=== PATIENT | male | born 1950 | race Caucasian/White ===

== ENCOUNTER 2024-11-02 09:47 | Day surgery (SDC) | payer MEDICARE, SELFPAY ==
[2024-10-31 14:41] VITALS: BMI 26.3
--- OUTSIDE RECORDS SUMMARY | 2024-10-31 16:35 | XMS_ITS ---
Author Organization [facility] Address [address] [place] [id number] Care Team Providers Care Agriculture Laboratory Technician Name Role Phone Joseph CHRISTIAN, Autumn Primary Care Provider Fabian Alvarez Unavailable [phone] Allergies Allergen (clinical drug ingredient) Drug/Non Drug Allergy documented on EMR Reaction Allergy Type Onset Date Status Pollen (e.g. tree, grass) Unknown Allergy Active Mold Unknown Allergy Active Dust Mites Unknown Allergy Active REASON FOR VISIT colon screening Medications Medication SIG (Take, Route, Frequency, Duration) Notes Start Date End Date Status Vitamin D3 2000 UNIT Orally Active Vitamin B12 1000 MCG 1 tablet Orally Once a day Active Omeprazole 20 MG TAKE 1 CAPSULE BY [facility] EVERY DAY for 90 Active Magnesium 400 MG 1 tablet with a meal Orally Once a day Active Finasteride 5 MG 1 tablet Orally Once a day Active Gabapentin 300 MG 1 capsule Orally TWI CE A DAY Active Pravastatin Sodium 10 MG 1 tablet Orally Once a day Active Fish Oil [place]-3 Act uday Problems Problem Type SNOMED Code ICD Code Onset Dates Problem Status W/U Status Risk Notes Problem Personal history of adenomatous and serrated colon polyps (Z86.0101) Active confirmed Problem Gastroesophageal reflux disease with esophagitis (disorder) (622541822) Gastroesophageal reflux disease with esophagitis, unspecified whether hemorrhage (K21.00) Active confirmed Vital Signs Blood pressure systolic 00 mm Hg 08/02/19 25 Blood pressure diastolic 00 mm Hg 025 Height 69 in 08/02/2024 Weight 178 lbs 08/02/2024 BMI 26.28 kg/m2 08/02/2024 Encounters Encounter Location Date Provider Diagnosis [facility] [address] [place] [address] 08/02/2024 Fabian Dixon Erosive esophagitis K22.10 ; Gastroesophageal reflux disease with esophagitis K21.0 ; Hx of adenomatous colonic polyps Z86.010 and Encounter for screening for malignant neoplasm of colon Z12.11 Assessments Encounter Date Diagnosis (ICD Code) Assessment Notes Treatment Notes Treatment Clinical Notes Section Notes 08/02/2024 Erosive esophagitis (ICD-10 - K22.10) Overall, Tanner appears quite well. His reflux seems to be stable on his daily omeprazole and did advise him to continue that long-term. He was eager to undergo a followup endoscopy to assess how things are compared to his previous exam. I advised him that there was no Bruce's esophagus and a followup exam is not essential. However, given the previous history of esophagitis in 2014 and some ongoing symptoms currently he would like to have a repeat endoscopy to reassess things in that regard. As such, I will be schedule that for him. He will also have a followup colonoscopy on the same day given his history of tubular adenomas and his last exam being just about 5 years ago. We did review the rationale for that in regard to colon cancer prevention. Full consent was obtained for this, including risks of bleeding and perforation. Both procedures will be done with monitored anesthesia carel. Tanner is comfortable with this plan. He was advised to stop his fish oil and Aleve for one week before the procedure. Thank you again for allowing me to participate in Tanner's care. I shall continue to keep you advised of his progress. 08/02/2024 Gastroesophageal reflux disease with esophagitis (ICD-10 - K21.0) Overall, Tanner appears quite well. His reflux seems to be stable on his daily omeprazole and did advise him to continue that long-term. He was eager to undergo a followup endoscopy to assess how things are compared to his previous exam. I advised him that there was no Bruce's esophagus and a followup exam is not essential. However, given the previous history of esophagitis in 2014 and some ongoing symptoms currently he would like to have a repeat endoscopy to reassess things in that regard. As such, I will be schedule that for him. He will also have a followup colonoscopy on the same day given his history of tubular adenomas and his last exam being just about 5 years ago. We did review the rationale for that in regard to colon cancer prevention. Full consent was obtained for this, including risks of bleeding and perforation. Both procedures will be done with monitored anesthesia carel. Tanner is comfortable with this plan. He was advised to stop his fish oil and Aleve for one week before the procedure. Thank you again for allowing me to participate in Tanner's care. I shall continue to keep you advised of his progress. 08/02/2024 Hx of adenomatous colonic polyps (ICD-10 - Z86.010) Overall, Tanner appears quite well. His reflux seems to be stable on his daily omeprazole and did advise him to continue that long-term. He was eager to undergo a followup endoscopy to assess how things are compared to his previous exam. I advised him that there was no Bruce's esophagus and a followup exam is not essential. However, given the previous history of esophagitis in 2014 and some ongoing symptoms currently he would like to have a repeat endoscopy to reassess things in that regard. As such, I will be schedule that for him. He will also have a followup colonoscopy on the same day given his history of tubular adenomas and his last exam being just about 5 years ago. We did review the rationale for that in regard to colon cancer prevention. Full consent was obtained for this, including risks of bleeding and perforation. Both procedures will be done with monitored anesthesia carel. Tanner is comfortable with this plan. He was advised to stop his fish oil and Aleve for one week before the procedure. Thank you again for allowing me to participate in Tanner's care. I shall continue to keep you advised of his progress. 08/02/2024 Encounter for screening for malignant neoplasm of colon (ICD-10 - Z12.11) Stop the Aleve and fish oil for 1 week before the procedires Overall, Tanner appears quite well. His reflux seems to be stable on his daily omeprazole and did advise him to continue that long-term. He was eager to undergo a followup endoscopy to assess how things are compared to his previous exam. I advised him that there was no Bruce's esophagus and a followup exam is not essential. However, given the previous history of esophagitis in 2014 and some ongoing symptoms currently he would like to have a repeat endoscopy to reassess things in that regard. As such, I will be schedule that for him. He will also have a followup colonoscopy on the same day given his history of tubular adenomas and his last exam being just about 5 years ago. We did review the rationale for that in regard to colon cancer prevention. Full consent was obtained for this, including risks of bleeding and perforation. Both procedures will be done with monitored anesthesia carel. Tanner is comfortable with this plan. He was advised to stop his fish oil and Aleve for one week before the procedure. Thank you again for allowing me to participate in Tanner's care. I shall continue to keep you advised of his progress. Plan Of Treatment Treatment Notes Assessment Notes Encounter for screening for malignant neoplasm of colon Stop the Aleve and fish oil for 1 week before the procedires Future Test Test Name Order Date UPPER GI ENDOSCOPY 08/02/2024 COLONOSCOPY 08/02/2024 Next Appt Details Follow Up: prn, Reason: Provider Name:Fabian Dixon , 11/02/2024 11:30:00 AM, [address] [place] [address], [id number], Progress Notes * LILI DAWKINS JrDOB:[birth year] (73 yo M)Acc No.[id number]:08/02/2024 Progress Notes Patient:?LILI DAWKINS Provider:?Fabian Dixon MD :1950???Age:73 Y???Sex:Male Gael e:08/02/2024 Address:[address] [place] [address] Pcp:Autumn Ruiz MD Subjective: * Chief Complaints: * ???Colon screening * HPI: ???incontinence:? I saw Tanner in followup today in regard to his underlying history of gastroesophageal reflux with esophagitis, his personal history of tubular adenomas of the colon, and need for colorectal cancer screening. ?I last saw Tanner in September of 2019, at which time he underwent an upper endoscopy and colonoscopy. His colonoscopy revealed 2 tubular adenomas that were removed. His upper endoscopy revealed his known hiatal hernia and no evidence of any esophagitis nor Bruce's esophagus. Since that time he has remained on his daily omeprazole 20 mg with generally good relief of his heartburn symptoms. However, he does describe intermittent episodes of heartburn that he notices particularly in the morning when he awakens. He denies any dysphagia, anorexia, early satiety, nausea, nor vomiting. He denies abdominal pain, jaundice, nor unintentional weight loss. He denies any change in bowel habits, hematochezia, or melena. He denies any known family history of colon cancer. * ROS:?General/Constitutional:?Change in appetite?denies.?Chills?denies.?Fatigue?denies.?Ophthalmologic:?Comments?all negative.?ENT:?Comments?all negative.?Respiratory:?hemoptysis?denies.?Cough?denies.?Cardiovascular:?Chest pain?denies.?Orthopnea?denies.?Gastrointestinal:?Comments?See HPI for details.?Genitourinary:?Hematuria?denies.?Dysuria?denies.?Musculoskeletal:?Painful joints?denies.?Weakness?denies.?Skin:?Itching?denies.?Rash?denies.?Neurologic:?Headache?denies.?Seizures?denies.?Psychiatric:?Comments?all negative.? * Medical History:? * Surgical History:?Knee surge ry-both Nasal surgery Lumbar spine fusion Left hip replacement - osteoarthritis * Hospitalization/Major Diagno stic Procedure:?No Hospitalization History. * Family History:?Father: dece ased, prostate cancer.?Mother: , diagnosed with HTN (hypertension), Heart disease.? No colorectal cancer. * Social History:?Tobacco Use:?Tobacco Use/Smoking?Are you a: former smoker.?Drugs/Alcohol:?Alcohol Screen?Points: 3, Interpretation: Negative.?Miscellaneous:?Caffeine: yes, 3-4 cups per day--tea. Marital status: single. 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 ???Nonsmoker; sig alcohol. * Medications:?TakingGabapenti n 300 MG Capsule 1 capsule Orally TWICE A DAYPravastatin Sodium 10 MG Tablet 1 tablet Orally Once a dayFish Oil [place]-3 Finasteride 5 MG Tablet 1 tablet Orally Once a dayMagnesium 400 MG Capsule 1 tablet with a meal Orally Once a dayVitamin B12 1000 MCG Tablet Extended Release 1 tablet Orally Once a dayVitamin D3 2000 UNIT Capsule Orally Omeprazole 20 MG Capsule Delayed Release TAKE 1 CAPSULE BY MOUTH EVERY DAY Taking Gabapentin 300 MG Capsule 1 capsule Orally TWICE A DAYTaking Pravastatin Sodium 10 MG Tablet 1 tablet Orally Once a dayTaking Fish Oil [place]-3 Taking Finasteride 5 MG Tablet 1 tablet Orally Once a dayTaking Magnesium 400 MG Capsule 1 tablet with a meal Orally Once a dayTaking Vitamin B12 1000 MCG Tablet Extended Release 1 tablet Orally Once a dayTaking Vitamin D3 2000 UNIT Capsule Orally Taking Omeprazole 20 MG Capsule Delayed Release TAKE 1 CAPSULE BY MOUTH EVERY DAY DiscontinuedSimvastatin 10 MG Tablet 1 tablet in the evening Orally Once a dayMulti Vitamin/Minerals Tablet Orally Fish Oil 1200 MG Capsule Delayed Release 1 capsule Orally Once a dayVitamin C 500 MG Capsule Orally Famotidine 40 MG Tablet 1 Orally BID--in morning and early eveningMedication List reviewed and reconciled with the patientDiscontinued Simvastatin 10 MG Tablet 1 tablet in the evening Orally Once a dayDiscontinued Multi Vitamin/Minerals Tablet Orally Discontinued Fish Oil 1200 MG Capsule Delayed Release 1 capsule Orally Once a dayDiscontinued Vitamin C 500 MG Capsule Orally Discontinued Famotidine 40 MG Tablet 1 Orally BID--in morning and early eveningMedication List reviewed and reconciled with the patient * Allergies:?Dust MitesMoldPol haile (e.g. tree, grass)yes[Allergies Verified] Objective: * Vitals:?Wt: 178 lbs, Ht: 69 in, BMI:26.28 Index, BP: 00/00 mm Hg. * Examination: ???General Examination: ?GENERAL APPEARANCE:?pleasant, well nourished, well developed, in no acute distress.?EYES:?sclera non-icteric.?ORAL CAVITY:?mucosa moist.?NECK/THYROID:?no cervical lymphadenopathy, neck supple.?SKIN:?nonjaundiced, no spider angiomata.?HEART:?S1, S2 normal.?LUNGS:?clear to auscultation bilaterally.?ABDOMEN:?normal bowel sounds, no guarding or rigidity, no guarding or rigidity, no masses palpable, soft, nontender, nondistended.?EXTREMITIES:?no edema.?NEUROLOGIC:?alert and oriented.? Assessment: * Assessment: 1.?Gastroesophageal reflux d isease with esophagitis - K21.0 (Primary)?2.?Erosive esophagitis - K22.10?3.?Hx of adenomatous colonic polyps - Z86.010?4.?Encounter for screening for malignant neoplasm of colon - Z12.11? Overall, Tanner appears quite well. His reflux seems to be stable on his daily omeprazole and did advise him to continue that long-term. He was eager to undergo a followup endoscopy to assess how things are compared to his previous exam. I advised him that there was no Bruce's esophagus and a followup exam is not essential. However, given the previous history of esophagitis in 2014 and some ongoing symptoms currently he would like to have a repeat endoscopy to reassess things in that regard. As such, I will be schedule that for him. He will also have a followup colonoscopy on the same day given his history of tubular adenomas and his last exam being just about 5 years ago. We did review the rationale for that in regard to colon cancer prevention. Full consent was obtained for this, including risks of bleeding and perforation. Both procedures will be done with monitored anesthesia carel. Tanner is comfortable with this plan. He was advised to stop his fish oil and Aleve for one week before the procedure. Thank you again for allowing me to participate in Tanner's care. I shall continue to keep you advised of his progress. Plan: * Treatment: 2.?Erosive esophagitis?Procedure: UPPER GI ENDOSCOPY (Ordered for 08/02/2024)* with MACsched for 11/02/24 at 11:20 am 3.?Hx of adenomatous colonic polyps?Procedure: COLONOSCOPY (Ordered for 08/02/2024)* with MACsched for 11/02/24 at 11:20 ammiralax 4.?Encounter for screening for malignant neoplasm of colon?Procedure: COLONOSCOPY (Ordered for 08/02/2024)* with MACsched for 11/02/24 at 11:20 ammiralax Notes: Stop the Aleve and fish oil for 1 week before the procedires?? * Procedure Codes:?3017F COLOR ECTAL CA SCREEN DOC [id number] TOBACCO [id number] BP SCR NOT PRFRM REC REASON NOS * Preventive Medicine:? ??Counseling:?Care goal follow-up plan:?Above Normal BMI Follow-up?Giving encouragement to exercise,?BMI management provided?Yes.? ??Screenings:?Fall Risk Screening?Fall Risk Assessment:?No falls in the past year,?Screening:?No falls in the past year,?Assessment:?Not performed, no reason specified,?Plan of Care:?Not documented, no reason specified.? * Follow Up:?prn * * Sign off status: Completed true * Provider:?Fabian Dixon MD Date:? 025 Generated for Jules elise/Jeremy/Deisi on:?10/31/2024 04:34 PM EDT History and Physical Notes * HPI (History of Present Illness) Category Sub-Category Detail Notes Category Not es incontinence I saw Tanner in followup today in regard to his underlying history of gastroesophageal reflux with esophagitis, his personal history of tubular adenomas of the colon, and need for colorectal cancer screening. I last saw Tanner in September of 2019, at which time he underwent an upper endoscopy and colonoscopy. His colonoscopy revealed 2 tubular adenomas that were removed. His upper endoscopy revealed his known hiatal hernia and no evidence of any esophagitis nor Bruce's esophagus. Since that time he has remained on his daily omeprazole 20 mg with generally good relief of his heartburn symptoms. However, he does describe intermittent episodes of heartburn that he notices particularly in the morning when he awakens. He denies any dysphagia, anorexia, early satiety, nausea, nor vomiting. He denies abdominal pain, jaundice, nor unintentional weight loss. He denies any change in bowel habits, hematochezia, or melena. He denies any known family history of colon cancer. Examination Category Sub-Category Detail Notes Category Not es General Examination GENERAL APPEARANCE: pleasant , well nourished, well developed, in no acute distress HEAD: EYES: sclera non-icteric EARS: NOSE: THROAT: NECK/THYROID: no cervical lymphade nopathy, neck supple HEART: S1, S2 normal CHEST: LUNGS: clear to auscultatio n bilaterally ABDOMEN: normal bowel sounds, no guarding or rigidity, no guarding or rigidity, no masses palpable, soft, nontender, nondistended NEUROLOGIC: alert and oriented SKIN: nonjaundiced, no spi eri angiomata EXTREMITIES: no edema PERIPHERAL PULSES: BACK: BREASTS: MUSCULOSKELETAL: MALE GENITOURINARY: LYMPH NODES: RECTAL EXAM: FEMALE GENITOURINARY: ORAL CAVITY: mucosa moist
--- OUTSIDE RECORDS SUMMARY | 2024-10-31 16:35 | XMS_ITS | Clinical Summary ---
Author Organization [facility] Address [address] [place] [address] Phone Care Team Providers Care Orthopaedic Doctor Name Role Phone Unavailable Primary Care Provider Unavailabl e Social History Tobacco Use Types Packs/Day Years Used Date Smoking Tobacco: Never Assessed Sex and Gender Information Value Date Recorded Sex Assigned at Not on file Legal Sex Male 2:55 PM EST Gender Identity Not on file Sexual Orientation Not on file Plan of Treatment Health Maintenance Due Date Last Done Comments DTaP,Tdap,and Td Vaccines (1 - Tdap) 11/09/1970 Pneumococcal Vaccine: 50+ Ye ars (1 of 1 - PCV) 11/09/2001 Zoster Vaccines (1 of 2) 11/09/2001 COVID-19 Vaccine ( - 2023-2 5 season) 2024 Abdominal Aortic Aneurysm (A AA) Screen 06/23/2024 Cholesterol Screening (Lipid Panel) 06/23/2024 Colorectal Cancer Screening: Colonoscopy 06/23/2024 Depression Screening 06/23/2024 Falls Risk Assessment 06/23/2024 Hepatitis C Screening 06/23/2024 Medicare Annual Wellness Visit 06/23/2024 Social Influencers of Health Screening 06/23/2024 Influenza Vaccine (Season Ended) 2025 RSV Immunization Adult Patie nts (1 - 1-dose 75+ series) 11/09/2026 HIB Vaccines Aged Out No longer eligi ble based on patient's age to complete this topic HPV Vaccines Aged Out No longer eligi ble based on patient's age to complete this topic Hepatitis A Vaccines Aged Out No long er eligible based on patient's age to complete this topic Hepatitis B Vaccines Aged Out No long er eligible based on patient's age to complete this topic IPV Vaccines Aged Out No longer eligi ble based on patient's age to complete this topic MMR Vaccines Aged Out No longer eligi ble based on patient's age to complete this topic Meningococcal ACWY Vaccine Aged Out N o longer eligible based on patient's age to complete this topic Meningococcal B Vaccine Aged Out No l onger eligible based on patient's age to complete this topic RSV Immunization Patients Un eri 20 months Aged Out No longer eligible b ased on patient's age to complete this topic Varicella Vaccines Aged Out No longer eligible based on patient's age to complete this topic Insurance MEDICARE [facility])
--- OUTSIDE RECORDS SUMMARY | 2024-10-31 16:35 | XMS_ITS | Encounter Summary ---
Author Organization [facility] Address [address] [place] [address] Care Team Providers Care Manager Division Name Role Phone Unavailable Primary Care Provider Unavailabl e Encounter Details Date Type Department Care Team (Late st Contact Info) Description 06/22/2024 Lab Requisition [facility] - Main Lab [address] [facility] [place] [address] Nakul Giron MD [address] [facility] [address] [place] [address] Elevated prostate specific antigen (PSA) Social History Tobacco Use Types Packs/Day Years Used Date Smoking Tobacco: Never Assessed Sex and Gender Information Value Date Recorded Sex Assigned at Not on file Legal Sex Male 2:55 PM EST Gender Identity Not on file Sexual Orientation Not on file documented as of this encounter Plan of Treatment Not on file documented as of this encounter Procedures Procedure Name Priority Date/Time Associated Diagnosis Comments AP OUTSIDE CONSULT Routine 06/21/2024 Elevated prostate specific antigen (PSA) documented in this encounter Results * Anatomic pathology outside consult (06/21/2024) Final Diagnosis A. Prostate, Left Middle [place] Biopsy: - Benign prostatic tissue. B. Prostate, Left Lateral [place] Biopsy: - High grade prostatic intraepithelial neoplasia (HGPIN). C. Prostate, Left Middle Middle Biopsy: - Benign prostatic tissue. D. Prostate, Left Lateral Middle Biopsy: - Benign prostatic tissue. E. Prostate, Left Middle Base Biopsy: - Benign prostatic tissue. F. Prostate, Left Lateral Base Biopsy: - Benign prostatic tissue. G. Prostate, Right Middle [place] Biopsy: - Benign prostatic tissue. H. Prostate, Right Lateral [place] Biopsy: - Benign prostatic tissue. I. Prostate, Right Middle Middle Biopsy: - Benign prostatic tissue. J. Prostate, Right Lateral Middle Biopsy: - Benign prostatic tissue. K. Prostate, Right Middle Base Biopsy: - Benign prostatic tissue. L. Prostate, Right Lateral Base Biopsy: - Benign prostatic tissue. M. Prostate, Right Transition Base Biopsy: - Benign prostatic tissue. 06/24/2024 12:41 PM [facility] Clinical Information Elevated PSA = 11.3 (05/06/24) R97.20 [id number] 06/24/2024 12:41 PM [facility] Gross Description A. Prostate, Left Middle [place] Biopsy: Received, properly labeled, are two H and E stained slides and two unstained slides. B. Prostate, Left Lateral [place] Biopsy: Received, properly labeled, are two H and E stained slides and two unstained slides. C. Prostate, Left Middle Middle Biopsy: Received, properly labeled, are two H and E stained slides and two unstained slides. D. Prostate, Left Lateral Middle Biopsy: Received, properly labeled, are two H and E stained slides and two unstained slides. E. Prostate, Left Middle Base Biopsy: Received, properly labeled, are two H and E stained slides and two unstained slides. F. Prostate, Left Lateral Base Biopsy: Received, properly labeled, are two H and E stained slides and two unstained slides. G. Prostate, Right Middle [place] Biopsy: Received, properly labeled, are two H and E stained slides and two unstained slides. H. Prostate, Right Lateral [place] Biopsy: Received, properly labeled, are two H and E stained slides and two unstained slides. I. Prostate, Right Middle Middle Biopsy: Received, properly labeled, are two H and E stained slides and two unstained slides. J. Prostate, Right Lateral Middle Biopsy: Received, properly labeled, are two H and E stained slides and two unstained slides. K. Prostate, Right Middle Base Biopsy: Received, properly labeled, are two H and E stained slides and two unstained slides. L. Prostate, Right Lateral Base Biopsy: Received, properly labeled, are two H and E stained slides and two unstained slides. M. Prostate, Right Transition Base Biopsy: Received, properly labeled, are two H and E stained slides and two unstained slides. /al 06/24/2024 12:41 PM EST [facility] Disclaimer Unless otherwise specified, all tissue is 10% NB formalin fixed and paraffin embedded. Technical pathology services provided by [facility] [address] [facility] [address] [place] [address] (CLIA #[id number]/Kemi Preciado MD, Street Cleaner) 06/24/2024 12:41 PM EST [facility] Tissue Prostate / Unknown 06/21/20242023 3:06 PM EST Tissue specimen (specimen) Prostate / Unknown 06/21/2024 06/22/2024 3: 06 PM EST Tissue specimen (specimen) Prostate / Unknown 06/21/2024 06/22/2024 3: 06 PM EST Tissue specimen (specimen) Prostate / Unknown 06/21/2024 06/22/2024 3: 06 PM EST Tissue specimen (specimen) Prostate / Unknown 06/21/2024 06/22/2024 3: 06 PM EST Tissue specimen (specimen) Prostate / Unknown 06/21/2024 06/22/2024 3: 06 PM EST Tissue specimen (specimen) Prostate / Unknown 06/21/2024 06/22/2024 3: 06 PM EST Tissue specimen (specimen) Prostate / Unknown 06/21/2024 06/22/2024 3: 06 PM EST Tissue specimen (specimen) Prostate / Unknown 06/21/2024 06/22/2024 3: 06 PM EST Tissue specimen (specimen) Prostate / Unknown 06/21/2024 06/22/2024 3: 06 PM EST Tissue specimen (specimen) Prostate / Unknown 06/21/2024 06/22/2024 3: 06 PM EST Tissue specimen (specimen) Prostate / Unknown 06/21/2024 06/22/2024 3: 06 PM EST Tissue specimen (specimen) Prostate / Unknown 06/21/2024 06/22/2024 3: 06 PM EST us Nakul Giron MD LAB PATHOLOGY ORDERABLES Final R esult [facility] [address] [phone] documented in this encounter Visit Diagnoses Diagnosis Elevated prostate specific antigen (PSA) documented in this encounter
--- OUTSIDE RECORDS SUMMARY | 2024-10-31 16:35 | XMS_ITS | Patient Health Record ---
Author Organization [facility] Address [address] [place] [id number] Care Team Providers Care Undercutter Operator Name Role Phone Joseph CHRISTIAN, Autmun Primary Care Provider Fabian Alvarez Unavailable [phone] Allergies Allergen (clinical drug ingredient) Drug/Non Drug Allergy documented on EMR Reaction Allergy Type Onset Date Status Pollen (e.g. tree, grass) Unknown Allergy Active Mold Unknown Allergy Active Dust Mites Unknown Allergy Active Reason For Referral No Information Medications Medication SIG (Take, Route, Frequency, Duration) Notes Start Date End Date Status Magnesium 400 MG 1 tablet with a meal Orally Once a day Active Vitamin D3 2000 UNIT Orally Active Vitamin B12 1000 MCG 1 tablet Orally Once a day Active Gabapentin 300 MG 1 capsule Orally TWI CE A DAY Active Pravastatin Sodium 10 MG 1 tablet Orally Once a day Active Omeprazole 20 MG TAKE 1 CAPSULE BY MO [facility] EVERY DAY for 90 Active Fish Oil [place]-3 Act uday Finasteride 5 MG 1 tablet Orally Once a day Active Problems Problem Type SNOMED Code ICD Code Onset Dates Problem Status W/U Status Risk Notes Problem 285791891 Encounter for screening for malignant neoplasm of colon (Z12.11) Active confirmed Problem 075626896 Gastroesophageal reflux disease with esophagitis (K21.0) Active confirmed Problem 49040406 Erosive esophagitis (K22.10) Active confirmed Problem 144983758 Hx of adenomatou s colonic polyps (Z86.010) Active confirmed Problem Gastroesophageal reflux disease with esophagitis (disorder) (374281051) Gastroesophageal reflux disease with esophagitis, unspecified whether hemorrhage (K21.00) Active confirmed Problem Personal history of adenomatous and serrated colon polyps (Z86.0101) Active confirmed Vital Signs Blood pressure diastolic 00 mm Hg 08/02/2024 Height 69 in 08/02/2024 Blood pressure systolic 00 mm Hg 08/02/2024 Weight 178 lbs 08/02/2024 BMI 26.28 kg/m2 08/02/2024 Encounters Encounter Location Date Provider Diagnosis [facility] [address] [place] [address] 08/02/2024 Fabian Dixon Erosive esophagitis K22.10 ; Gastroesophageal reflux disease with esophagitis K21.0 ; Hx of adenomatous colonic polyps Z86.010 and Encounter for screening for malignant neoplasm of colon Z12.11 Assessments Encounter Date Diagnosis (ICD Code) Assessment Notes Treatment Notes Treatment Clinical Notes Section Notes 08/02/2024 Gastroesophageal reflux disease with esophagitis (ICD-10 [...] keep you advised of his progress. 08/02/2024 Erosive esophagitis (ICD-10 - K22.10) Overall, [...] advised of his progress. Plan Of Treatment Future Test Test Name Order Date UPPER GI ENDOSCOPY 08/08/2014 COLONOSCOPY 08/08/2014 UPPER GI ENDOSCOPY 04/26/2019 COLONOSCOPY 04/26/2019 UPPER GI ENDOSCOPY 08/02/2024 COLONOSCOPY 08/02/2024 Next Appt Details Provider Name:Fabian Dixon , 11/02/2024 11:30:00 AM, [address] [place] [address] , [place], [place], [phone], Insurance Providers Payer Name Payer Address Payer Phone Subscriber Number Group Number Insured Name Patient Relationship to Insured Coverage Start Date Coverage End Date MEDICARE OF [place] [address] [place] [address] [id number] LILI DAWKINS Self - patient is the insured [employer] ATT[employer] CLAIMS [address] [place] [address] [id number] LILI DAWKINS Self - patient is the insured Medical (General) History Medical History History ICD Code Colon polyps--his most recen t colonoscopy was in September of 2014 with 2 small tubular adenomas removed, as well as the finding of some diverticulosis and internal hemorrhoids--tubular adenomas removed in 1994 and 2003--he did have a negative colonoscopy in 1997 and in 2008 as well. BPH Plantar fascitis Hyperlipidemia Denies [place],DM,CVA,Lung disease,renal dise ase Prostate biopsises--negative--most recen t 06/2024 GERD-EGD in [id number] HH, er osive esophagitis-no Bruce's Prediabetic Osteoarthritis Colonoscopy 09/2019 with 2 tubular adenom as removed GERD 09/2019 with a HH and he aled esophagitis. There was no Bruce's esophagus on the biopsies Surgical History Surgery Date(Month/Year) Knee surgery-both Nasal surgery Lumbar spine fusion Left hip replacement - osteoarthritis
[2024-11-02 10:30] VITALS: BMI 25.1
[2024-11-02 10:51] VITALS: BP 146/98; PULSE 93; RESP 18; TEMP 36.1; O2SAT 98
[2024-11-02] MEDS: Lactated Ringers 1,000 ML 100 ML IVCONT (11:05)
--- NOTE | 2024-11-02 11:43 | P.CONAN_ITS ---
[facility] Past Medical History Medical History Osteoarthritis GERD (gastroesophageal reflux disease) Hiatal hernia Hyperlipidemia Plantar fasciitis BPH (benign prostatic hyperplasia) Internal hemorrhoids Diverticulosis Environmental allergies Surgical History Surgical History History of total left hip arthroplasty Hx of spinal surgery History of nasal surgery Hx of knee surgery History of esophagogastroduodenoscopy (EGD) Hx of prostate biopsy (06/2024) Hx of colonoscopy (09/2019) History of Problems with Anesthesia: No Social History Social History Household Members Other:: lives alone Are you a primary family member caretaker to a significant other at home: No Do you presently have visiting nurse or other home services: No Patient Tobacco Use Status: Former Tobacco user Use of substances other than those prescribed or required for medical reasons: No Have you been hit, kicked, punched, or otherwise hurt by someone within the past year? If so, by whom?: No Are you DNR?: No Advance Directives: No Advance Directives Information Provided: Yes Poor oral hygiene: No Meds Allergies Allergy/AdvReac Type Severity Reaction Status Date / Time No Known Allergies Allergy Verified 11/02/24 10:17 Active Medications: Current Medications Lactated Ringer's (Lr) 1,000 mls @ 100 mls/hr IVCONT .Q10H KATYA Last Admin: 11/02/24 11:05 Dose: 100 mls/hr Sodium Biphosphate/Sodium Phosphate (Sodium Phosphate,[place]-Dibasic 133 Ml Enema) 133 ml SD ONCE PRN PRN Reason: Poor Colonoscopy Prep Results Home Medications ?Medication ?Instructions ?Recorded ?Confirmed ?Last Taken ?Type Fish Oil 10/31/24 10/25/24 History cholecalciferol (vitamin D3) 50 50 mcg PO DAILY 10/31/24 10/31/24 Unknown H istory mcg (2,000 unit) capsule (Vitamin D3) cyanocobalamin (vitamin B-12) 1,000 mcg PO DAILY 10/31/24 10/31/24 Unknown History 1,000 mcg tablet (Vitamin B-12) finasteride 5 mg tablet 5 mg PO DAILY 10/31/24 10/31/24 Unknown History gabapentin 300 mg capsule 300 mg PO BID 10/31/24 10/31/24 Unknown History omeprazole 20 mg capsule,delayed 20 mg PO DAILY 10/31/24 11/02/24 11/02/24 08:00 History release pravastatin 10 mg tablet 10 mg PO DAILY 10/31/24 10/31/24 Unknown History Exam Height,Weight and Vital Signs: Height 5 ft 9 in Weight 77 kg Last Vital Signs Temp 97.0 F 11/02/24 10:51 Pulse 93 11/02/24 10:51 Resp 18 11/02/24 10:51 BP 146/98 H 11/02/24 10:51 Pulse Ox 98 11/02/24 10:51 O2 Del Method Room Air 11/02/24 10:51 Airway Mallampati Class: III TM Dist: >3cm Neck ROM: Full Loose/Missing/Broken Teeth: No Heart: RRR Lungs: CTA Assessment and Plan Assessment Anesthesia Assessment: Anesthesia Plan Discussed and Chart Reviewed Final Anesthetic Review History of Problems with Anesthesia: No NPO: Yes ASA Class: II Final Preanesthetic Review: Meds/Allgs Chart Reviewed, Consent Obtained/Reviewed and Anes Risks/Benef Reviewed Patient Risk: Low Procedure Risk: Intermediate Anesthetic Plan Anesthetic Plan: MAC: Disposition: Standard PACU
[2024-11-02 13:17] VITALS: BP 111/69; PULSE 70; RESP 18; TEMP 36.1; O2SAT 99
[2024-11-02 13:30] VITALS: BP 113/71; PULSE 73; RESP 18; O2SAT 99
[2024-11-02 13:45] VITALS: BP 125/77; PULSE 67; RESP 18; TEMP 36.1; O2SAT 99
--- NOTE | 2024-11-03 16:48 | PM.OP ---
Brief Operative Note Date of Service: 11/02/24 Pre-op diagnosis: GERD, Screening Post-op diagnosis: other (Same, Hiatal hernia, Colon polyps) Procedure: EGD with biopsies, Colonoscopy to the cecum with bx/removal of polyp and hot snare polypectomy x 1 Surgeon: Fabian Dixon MD Anesthesia: MAC Was an Tongue And Quarter Stitcher used for this Procedure?: No Estimated blood loss (mL): 2.0 Pathology: other (A. EG Junction at 34cm B. Transverse colon polyp C. Polyp at 60cm) Condition: stable Disposition: PACU
--- NOTE | 2024-11-03 21:57 | OP_ITS ---
DATE OF SERVICE: 11/02/2024 SURGEON: Fabian Dixon MD INDICATIONS: The patient presents for followup of gastroesophageal reflux, personal history of colon polyps, and colorectal cancer screening. Full consent has been obtained from him for both procedures, including risks of bleeding and perforation. PREOPERATIVE DIAGNOSIS: POSTOPERATIVE DIAGNOSIS: PROCEDURE PERFORMED: ESTIMATED BLOOD LOSS: COMPLICATIONS: ANESTHESIA: Medication used is monitored anesthesia care. ASSISTANTS: SPECIMENS: PREOPERATIVE DIAGNOSES: Gastroesophageal reflux, colorectal cancer screening, history of colon polyps. POSTOPERATIVE DIAGNOSES: Gastroesophageal reflux, colorectal cancer screening, history of colon polyps, hiatal hernia, rule out Bruce esophagus, colon polyps, diverticulosis, and internal hemorrhoids. PROCEDURES PERFORMED: 1. Esophagogastroduodenoscopy with biopsies. 2. Colonoscopy to the cecum with biopsy and removal of polyp, and hot snare polypectomy x1. DESCRIPTION OF PROCEDURE: The patient was placed in left lateral decubitus position. The Olympus video gastroscope was passed into the posterior oropharynx and upper esophagus under direct vision. The scope was passed slowly into the distal esophagus. The gastroesophageal junction appeared at 34 cm. There was some slight irregularity consistent with reflux, but no evidence of any esophagitis nor any definitive Bruce mucosa. The scope entered the stomach. There was a small hiatal hernia. The hiatal hernia mucosa appeared normal. The scope was advanced to pylorus. The duodenum was cannulated to the descending portion. The duodenum including the bulb appeared normal without mass or ulceration. The scope was withdrawn back into the stomach. The gastric antrum and body appeared normal with good peristalsis. Scope was retroflexed visualizing the proximal stomach carefully, which appeared normal, without any sign of mass or ulceration. The scope was straightened and withdrawn back into the esophagus. Biopsies were obtained at the EG junction at 34 cm. Proximal to this, the esophageal mucosa appeared normal. Scope was withdrawn from the patient. He was turned around for the colonoscopy. The digital rectal exam revealed no abnormalities. The Olympus video pediatric colonoscope was entered into the rectum and advanced easily to the cecum. Once in the cecum, I did identify normal-appearing cecal pouch with appendiceal orifice and a normal-appearing ileocecal valve. There was transillumination of light deep in the right lower quadrant. The entire cecum and ileocecal valve appeared normal. The scope was then slowly withdrawn assessing all mucosal surfaces carefully. Preparation was excellent. In the transverse colon, there was a flat 3 to 4 mm polyp, which was biopsied and completely removed with cold biopsy forceps. At 60 cm, there was an approximately 8 to 10 mm flat, but raised polyp, which was removed by hot snare polypectomy and recovered by suction. The polypectomy site appeared clean without any sign of residual polyp nor bleeding. In the same vicinity, I felt that I possibly saw another polyp measuring about 10 mm in diameter by a fold, but could not locate it again. When I found the above-mentioned polyp in the same area, I removed it. I felt that may have represented the polyp I saw or possibly a second polyp in that area. I did not visualize any other polyps, colitis, nor angiodysplasia. There was a mild amount of sigmoid diverticulosis. In the rectum, scope was retroflexed visualizing internal hemorrhoids, but no other pathology. The rectal mucosa appeared normal. Scope was straightened and withdrawn from the patient. He tolerated both procedures well and was returned to the recovery area in stable condition. IMPRESSION: 1. Hiatal hernia, gastroesophageal reflux, rule out Bruce esophagus. 2. Colon polyps. 3. Diverticulosis. 4. Internal hemorrhoids. PLAN: Results of the pathology will be checked. If there is evidence of Bruce esophagus without dysplasia, I would recommend a repeat upper endoscopy in 3 years. He will otherwise continue his daily omeprazole. I do not think he needs to be on higher than 20 mg per day as it seems to be symptomatically relieving his reflux as well. I would recommend a repeat colonoscopy in 3 years, rather than 5 years due to the fact that there may have been a second polyp in the area of 60 cm that I could not relocate. It was very small and I do not think the colonoscopy would need to be done sooner than 3 years. He was advised not to use any aspirin and NSAIDs for 1 week. He will see me in the interim on a p.r.n. basis. MD EDILBERTO Lara/DANTE / [id number]
== END 2024-11-02 14:14 | disposition home or self-care (01) ==
PROVIDERS: PCP Internal Medicine; Visit Provider Internal Medicine
PROC: (CPT 45385; principal; 2024-11-02 11:20)
DX: Z12.11 Encounter for screening for malignant neoplasm of colon (principal); Z86.0101 Personal history of adenomatous and serrated colon polyps; D12.3 Benign neoplasm of transverse colon; D12.4 Benign neoplasm of descending colon; K57.30 Diverticulosis of large intestine without perforation or abscess without bleeding; K64.8 Other hemorrhoids; K21.9 Gastro-esophageal reflux disease without esophagitis; K44.9 Diaphragmatic hernia without obstruction or gangrene; E78.5 Hyperlipidemia, unspecified; R73.03 Prediabetes; N40.0 Benign prostatic hyperplasia without lower urinary tract symptoms; Z79.899 Other long term (current) drug therapy; Z98.890 Other specified postprocedural states; Z87.891 Personal history of nicotine dependence
CPT/HCPCS: 45385; 45380; 43239; 88305; 88313; 88342; J2003; J2704